=== PATIENT | male | born 1975 | race Caucasian/White ===

== ENCOUNTER 2021-06-18 08:47 | Emergency (ER) | payer SELFPAY ==
[~2021-06-18] VITALS: Ht 180.3 cm; Wt 86.5 kg
--- NOTE | 2021-06-18 09:09 | NUR ---
PT PRESENTS TO ED WITH INTERMITTENT ANXIETY ATTACKS [place] PT REPORTS ANXIETY WHEN DRIVING. LAST "ATTACK" YESTERDAY WITH HTN AT THE TIME. PT WAS TOLD DURING PHYSICAL FOR D.O.T. THAT HE WAS HYPERTENSIVE AND WAS TOLD HE NEEDED HTN MED. NO FOLLOW UP COMPLETED WITH PRIMARY/CARDIO . ADELFO AT BEDSIDE.
[2021-06-18 09:35] LABS: BASOPHILS % (AUTO) 0 % (0-1); EOSINOPHILS % (AUTO) 1 % (1-7); LYMPHOCYTES % (AUTO) 11 % (22-44); MEAN CORPUSCULAR HEMOGLOBIN 31.6 pg (27.5-34.5); MEAN CORPUSCULAR HGB CONC 34.1 g/dL (33.2-36.2); MEAN PLATELET VOLUME 7.8 fL (7.4-10.4); MONOCYTES % (AUTO) 6 % (2-9); NEUTROPHILS % (AUTO) 82 % (42-75); PLATELET COUNT 212 x10^3/uL (130-400); RED BLOOD COUNT 5.23 x10^6/uL (4.38-5.82); RED CELL DISTRIBUTION WIDTH 13.6 % (9.4-14.8)
[2021-06-18 09:44] LABS: CALCIUM 9.1 mg/dL (8.5-10.1)
[2021-06-18 09:52] LABS: ALANINE AMINOTRANSFERASE 26 U/L (12-78); ALKALINE PHOSPHATASE 72 U/L (45-117); BILIRUBIN,TOTAL 0.5 mg/dL (0.2-1.0); CREATININE 0.82 mg/dL (0.7-1.3); FREE T4 (FREE THYROXINE) 1.06 ng/dL (0.76-1.46); TOTAL PROTEIN 7.6 g/dL (6.4-8.2); TROPONIN I < 0.015 ng/mL (0.000-0.045)
[2021-06-18 09:57] LABS: ANION GAP 7 mmol/L (5-15); CHLORIDE 108 mmol/L (98-107)
[2021-06-18 10:22] VITALS: BP 122/84
== END 2021-06-18 10:24 | disposition home or self-care (01) ==
LOC: ED 10:01
DX: I10 Essential (primary) hypertension (principal); F41.9 Anxiety disorder, unspecified; F17.200 Nicotine dependence, unspecified, uncomplicated; R94.31 Abnormal electrocardiogram [ECG] [EKG]
CPT/HCPCS: 36415; 71045; 80053; 84439; 84443; 84484; 85025; 93005; 99285